=== PATIENT | female | born 1990 | race American Indian/Alaskan Native ===

== ENCOUNTER 2022-02-04 23:42 | Emergency (ER) | payer MEDICAID ==
[2022-02-05] VITALS: BP 120/88
[2022-02-05] MEDS ORDERED: MORPHINE 10 MG/1 ML INJ IV ONE (00:04)
[2022-02-05] MEDS ORDERED: SODIUM CHLORIDE 0.9% 1000 ML 1,000 ML IV ONE (00:04)
--- NOTE | 2022-02-05 00:33 | Emergency Department Report ---
ED Upper Extremity Inj HPI - General Chief Complaint: Extremity Injury, Upper Stated Complaint: POSS DISLOCATED RT ARM Time Seen by Provider: 02/05/22 00:02 Source: patient Mode of arrival: Wheelchair Limitations: No Limitations - History of Present Illness Initial Comments: RT SHOULDER PAIN AFTER SWIMMING IN THE POOL EARLIER. PT REPORTS 3 PREVIOUS DIS LOCATIONS IN THIS SHOULDER MD Complaint: Injury to:: right, shoulder -: Sudden, minutes(s) Other Extremity Injury: Shoulder: Right Other Injuries: none Severity scale (0 -10): 9 Improves With: none Worsens With: movement of extremity Associated Symptoms: denies: denies other symptoms, weakness, numbness, neck pain - Related Data Previous Rx's Medication Instructions Recorded Last Taken Type metroNIDAZOLE [Flagyl] 500 mg PO BID #14 tablet 09/21/13 Unknown Rx Famotidine [Pepcid] 20 mg PO BID #40 tablet 02/01/15 Unknown Rx Vit/Iron Fum/Folic AC 1 each PO QDAY #90 tablet 02/01/15 Unknown Rx [ Vitamin Tablet] Promethazine [Phenergan] 25 mg PO Q6H PRN #30 tablet 02/01/15 Unknown Rx metroNIDAZOLE 0.75%(NF) [Metrogel 1 applicatio TP QHS #5 tube 02/24/15 Unknown Rx 0.75% TOPICAL] Ondansetron [Zofran Odt] 4 mg PO TID #15 tab.rapdis 03/20/15 Unknown Rx Allergies Allergy/AdvReac Type Severity Reaction Status Date / Time No Known Allergies Allergy Verified 03/20/15 09:15 ED Review of Systems ROS: Stated complaint: POSS DISLOCATED RT ARM Other details as noted in HPI ED Past Medical Hx - Past Medical History Hx Hypertension: No Hx Diabetes: No Hx Deep Vein Thrombosis: No Hx Renal Disease: No Hx Sickle Cell Disease: No Hx Seizures: No Hx Asthma: No Hx HIV: No - Social History Smoking Status: Never Smoker - Medications Home Medications: Home Medications Medication Instructions Recorded Confirmed Last Taken Type metroNIDAZOLE [Flagyl] 500 mg PO BID #14 tablet 09/21/13 Unknown Rx Famotidine [Pepcid] 20 mg PO BID #40 tablet 02/01/15 Unknown Rx Vit/Iron Fum/Folic AC 1 each PO QDAY #90 tablet 02/01/15 Unknown Rx [ Vitamin Tablet] Promethazine [Phenergan] 25 mg PO Q6H PRN #30 tablet 02/01/15 Unknown Rx metroNIDAZOLE 0.75%(NF) [Metrogel 1 applicatio TP QHS #5 tube 02/24/15 Unknown Rx 0.75% TOPICAL] Ondansetron [Zofran Odt] 4 mg PO TID #15 tab.rapdis 03/20/15 Unknown Rx ED Physical Exam - General Limitations: No Limitations ED Course Vital Signs 02/04/22 23:42 Temperature 98.2 F Pulse Rate 112 H Respiratory 20 Rate Blood Pressure 120/88 [Right] O2 Sat by Pulse 100 Oximetry ED Medical Decision Making - Radiology Data Radiology results: image reviewed - Medical Decision Making SPONATANEOUSLY REDUCED WHILE DOING X RAY Critical care attestation.: If time is entered above; I have spent that time in minutes in the direct care of this critically ill patient, excluding procedure time. ED Disposition Clinical Impression: Recurrent dislocation, right shoulder Disposition: HOME / SELF CARE / HOMELESS Is pt being admited?: No Does the pt Need Aspirin: No Condition: Stable Instructions: Shoulder Dislocation
[2022-02-05] MEDS ORDERED: HYDROcodone/ACETAMINOPHEN 5-325 MG TAB PO ONE (00:38)
--- NOTE | 2022-02-05 01:19 | XRay Report ---
Right shoulder, single view HISTORY: Pain COMPARISON: None FINDINGS: No acute fracture or malalignment of the right shoulder on single provided frontal view. Signer Name: Roger Marroquin MD Signed: 02/05/2022 1:14 AM Workstation Name: [id number] ([id number]
== END 2022-02-05 01:35 | disposition home or self-care (01) ==
LOC: ED 23:42
DX: M24.411 Recurrent dislocation, right shoulder (principal)
CPT/HCPCS: 99284; J3490; J2270